=== PATIENT | female | born 1995 | race Asian ===

== ENCOUNTER 2017-04-04 16:16 | Emergency (ER) | payer BC ==
[2017-04-04 16:33] VITALS: BP 101/65
[2017-04-04] MEDS ORDERED: Ondansetron ODT TAB* 4 MG PO ONE (17:42)
[2017-04-04] MEDS ORDERED: Nitrofurantoin Macrocrystals* 50 MG CAP PO ONE (17:44)
--- NOTE | 2017-04-08 11:39 | UC ---
UC General HPI - HPI Summary HPI Summary: Patient presents with an unremarkable past medical history. She feel ill 2 days ago and has had stomach pain, with nausea and not able to eat or drink due to the nausea. She denies any fever, chills, abdominal pain, dysuria, or abnormal vaginal discharge or bleedings. He friend who is a diabetic checked her finger stick and states it was 55, so she gave her her emergency diabetic glucose supplements. She then brings her to the clinic for evaluation. - History of Current Complaint Chief Complaint: UCAbdominalPain Stated Complaint: ABDOMINAL COMPLAINT Time Seen by Provider: 04/04/17 17:26 Hx Obtained From: Patient Hx Last Menstrual Period: unknown, just started a new bith control Onset/Duration: Gradual Onset, Lasting Days Timing: Constant Onset Severity: Moderate Current Severity: Moderate Pain Intensity: 2 Associated Signs & Symptoms: Positive: Nausea, Vomiting - Allergy/Home Medications Allergies/Adverse Reactions: Allergies Allergy/AdvReac Type Severity Reaction Status Date / Time Amoxicillin Allergy Hives Verified 04/04/17 16:33 PMH/Surg Hx/FS Hx/Imm Hx Previously Healthy: Yes - Surgical History Surgical History: Yes Surgery Procedure, Year, and Place: tonsils - Family History Known Family History: Positive: None - Social History Occupation: Student Lives: Alone Alcohol Use: None Substance Use Type: None Smoking Status (MU): Never Smoked Tobacco Review of Systems Constitutional: Fatigue Skin: Negative Eyes: Negative ENT: Negative Respiratory: Negative Cardiovascular: Negative Gastrointestinal: Abdominal Pain, Vomiting, Diarrhea, Nausea Genitourinary: Negative Motor: Negative Neurovascular: Negative Musculoskeletal: Negative Neurological: Negative Psychological: Negative All Other Systems Reviewed And Are Negative: Yes Physical Exam Triage Information Reviewed: Yes Appearance: Well-Appearing Vital Signs: Initial Vital Signs Temp 99.1 F 04/04/17 16:29 Pulse 128 04/04/17 16:29 Resp 18 04/04/17 16:29 BP 101/65 04/04/17 16:29 Pulse Ox 99 04/04/17 16:29 Vital Signs Reviewed: Yes Eye Exam: Normal ENT Exam: Normal Dental Exam: Normal Neck exam: Normal Neck: Positive: 1 Respiratory Exam: Normal Cardiovascular Exam: Normal Abdomen Description: Positive: Soft, Other: - palpable epigastric pain without rebound, guarding or HSM. Musculoskeletal Exam: Normal Skin Exam: Normal Course/Dx - Course Course Of Treatment: Patient presents with 2 days of epigastric abdominal pain, and nausea. UA revealed ketones consistent with anoexia, finger stick was 108 here, she was given zofran with good responce and tolerating oral liquids. I recommend clear liquids today, She did not have peritoneal signs, and given the gooe reposnce I did feel she could be discharge home, clear liquids today and advance diet as toelrated. she was instructed to go to the ER if her symptoms returned and verbalized understanding and was in agreeement with the discharge plan. - Differential Dx - Multi-Symptom Differential Diagnoses: Other - abdominal pain nausea viral syndrome Provider Diagnoses: abdominal pain. nausea. viral syndrome Discharge - Discharge Plan Condition: Stable Disposition: HOME Prescriptions: Nitrofurantoin Monohyd Macro [Macrobid] 100 mg PO BID #14 cap Ondansetron TAB* [Zofran 4 MG Tab*] 4 mg PO TID #14 tab Patient Education Materials: Urinary Tract Infection in Women (ED) Forms: *School Release Referrals: [facility] - [place] [facility] [Primary Care Provider] - Additional Instructions: You will need to be rechecked in two days. If you are not eating you will need to go to the ER.
== END 2017-04-04 18:15 | disposition home or self-care (01) ==
LOC: UCEAST 16:16
DX: B34.9 Viral infection, unspecified (principal); R53.83 Other fatigue; Z32.02 Encounter for pregnancy test, result negative
CPT/HCPCS: 81003; 84702; 99202; A9270-GY; G0463

== ENCOUNTER 2017-04-05 23:06 | Emergency (ER) | payer BC ==
[2017-04-06] MEDS ORDERED: NS 0.9% 1000 ML* 1,000 ML IV ONE (00:27)
[2017-04-06] MEDS ORDERED: Ondansetron INJ* 2 MG/ML VIAL IV ONE (00:27)
[2017-04-06 00:56] LABS: Hematocrit 39 % (35-47); Hemoglobin 13.4 g/dl (12.0-16.0); Mean Corpuscular HGB Conc 34 g/dl (31-36); Mean Corpuscular Hemoglobin 30 pg (27-31); Mean Corpuscular Volume 86 fL (80-97); Mean Platelet Volume 8 um3 (7.4-10.4); Red Blood Count 4.53 10^6/ul (4.0-5.4); Red Cell Distribution Width 13 % (10.5-15); White Blood Count 8.8 10^3/ul (3.5-10.8)
[2017-04-06 01:11] LABS: ALT 11 U/L (7-52); AST 16 U/L (13-39); Albumin 4.8 g/dL (3.2-5.2); Alkaline Phosphatase 52 U/L (34-104); Anion Gap 11 mmol/L (2-11); BUN/Creatinine Ratio 18.7 (8-20); Blood Urea Nitrogen 17 mg/dL (6-24); CO2 Carbon Dioxide 23 mmol/L (22-32); Calcium 9.9 mg/dL (8.6-10.3); Chloride 101 mmol/L (101-111); EGFR African American 102.4 (>60); EGFR Non-African American 79.6 (>60); Globulin 2.9 g/dL (2-4); Glucose 79 mg/dL (70-100); Potassium 3.6 mmol/L (3.5-5.0); Sodium 135 mmol/L (133-145); Total Protein 7.7 g/dL (6.4-8.9)
[2017-04-06 02:36] LABS: Urine Bilirubin Negative (Negative); Urine Glucose Negative (Negative); Urine Nitrite Negative (Negative)
[2017-04-06 03:21] VITALS: BP 114/65
--- NOTE | 2017-04-06 06:13 | ED ---
Jeramie Noguera Rebecca, scribed for Kristie Rehman MD on 04/06/17 at 0052 . Complex/Multi-Sys Presentation - HPI Summary HPI Summary: Pt is a 21 y/o F who presents to ED c/o nausea for about 4 days. Sx aggravated and alleviated by nothing. Additionally c/o intermittent SALAS, decreased appetite and dizziness upon sitting/standing. States that she has been unable to eat for the last 3 days secondary to nausea. Denies back pain, abdominal pain. She was evaluated by Urgent Care yesterday where she was given antiemetics and Abx for UTI, though the antiemetics have not been alleviating sx significantly. - History Of Current Complaint Chief Complaint: EDNauseaVomitDiarrh Time Seen by Provider: 04/06/17 00:27 Hx Obtained From: Patient Onset/Duration: Still Present Timing: Days - 4 days Severity Currently: None Location: Negative Aggravating Factor(s): Nothing Alleviating Factor(s): Nothing Associated Signs And Symptoms: Positive: Dizziness, Nausea - Allergies/Home Medications Allergies/Adverse Reactions: Allergies Allergy/AdvReac Type Severity Reaction Status Date / Time Amoxicillin Allergy Hives Verified 04/04/17 16:33 PMH/Surg Hx/FS Hx/Imm Hx Endocrine/Hematology History: Denies: Hx Diabetes Cardiovascular History: Denies: Hx Hypertension - Surgical History Surgery Procedure, Year, and Place: tonsils Infectious Disease History: No Infectious Disease History: Denies: Traveled Outside the [place] in Last 30 Days - Family History Known Family History: Positive: Hypertension, Other - HLD - Social History Alcohol Use: None Substance Use Type: Reports: None Smoking Status (MU): Never Smoked Tobacco Review of Systems Positive: Ear Ache Negative: Chest Pain Negative: Shortness Of Breath Positive: Nausea, Other - Decreased appetite. Negative: Abdominal Pain, Vomiting, Diarrhea Positive: Other - NEGATIVE: Back pain Neurological: Other - Dizziness Positive: Headache - Intermittent All Other Systems Reviewed And Are Negative: Yes Physical Exam - Summary Physical Exam Summary: Appearance: Alert, conversive, nontoxic appearing Skin: Warm, dry, no mottling, no rashes, no contusions HEENT: EOMI, PERRL, moist mucous membranes Neck: No masses on the neck, supple Respiratory: Clear to auscultation, breath sounds present, no rales, no rhonchi , no wheezes Cardiovascular: RRR, pulses are symmetrical in both lower and upper extremities Abdomen: Soft, non-tender Bowel Sounds: Present Musculoskeletal: No CVA tenderness, no obvious deformity, moving all extremities in a grossly normal manner Neurological: A&Ox3, CN II-XII Intact, moving all extremities symmetrically Psychiatric: Normal affect and mood Triage Information Reviewed: Yes Vital Signs On Initial Exam: Initial Vitals Temp Pulse Resp BP Pulse Ox 97.5 F 74 18 116/77 100 04/05/17 23:27 04/05/17 23:27 04/05/17 23:27 04/05/17 23:27 04/05/17 23:27 Vital Signs Reviewed: Yes - Bowie Coma Scale Coma Scale Total: 15 Diagnostics - Vital Signs Vital Signs Temp Pulse Resp BP Pulse Ox 04/05/17 23:27 97.5 F 74 18 116/77 100 - Laboratory Result Diagrams: 04/06/17 00:45 04/06/17 00:45 Lab Statement: Any lab studies that have been ordered have been reviewed, and results considered in the medical decision making process. Complex Multi-Symp Course/Dx Assessment/Plan: Pt is a 21 y/o F who presents to ED c/o nausea for about 4 days. Additionally c/o intermittent SALAS, decreased appetite and dizziness upon sitting/standing. States that she has been unable to eat for the last 3 days secondary to nausea. Denies back pain, abdominal pain. She was evaluated by Urgent Care yesterday where she was given antiemetics and Abx for UTI, though the antiemetics have not been alleviating sx significantly. Urine shows no evidence of UTI and the remainder of her labs are grossly normal. The CBC shows no WBC elevation and no bandemia. Can continue the Abx that she was given this week for her Dx of UTI earlier this week. The pt will be D/C with Dx of dehydratoin and UTI. She is agreeable with this plan. - Diagnoses Provider Diagnoses: Dehydration, UTI (urinary tract infection) Discharge - Discharge Plan Condition: Stable Disposition: HOME Patient Education Materials: Dehydration (ED), Urinary Tract Infection in Women (ED) Referrals: [facility] - [place] [Primary Care Provider] - Additional Instructions: drink plenty of fluids. return if worse or any new symptoms. Finish your antibiotics as prescribed for your UTI diagnosed earlier in the week. The documentation as recorded by the Jeramie rosado Rebecca accurately reflects the service I personally performed and the decisions made by , Kristie Rehman MD.
== END 2017-04-06 02:35 | disposition home or self-care (01) ==
LOC: ED 23:06
DX: E86.0 Dehydration (principal); N39.0 Urinary tract infection, site not specified; R42 Dizziness and giddiness; R11.0 Nausea
CPT/HCPCS: 36415; 80053; 81003; 84702; 85025; 96374; 96375; 99282; J2405

== ENCOUNTER 2019-03-28 20:06 | Emergency (ER) | payer BC ==
[2019-03-28] MEDS ORDERED: Acetaminophen TAB* 325 MG PO ONE (20:32)
[2019-03-28] MEDS ORDERED: Ondansetron ODT TAB* 4 MG SL ONE (20:33)
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
[2019-03-28 21:55] VITALS: BP 112/78
== END 2019-03-28 21:51 | disposition home or self-care (01) ==
LOC: ED 20:06
DX: S06.0X9A Concussion with loss of consciousness of unspecified duration, initial encounter (principal); W22.8XXA Striking against or struck by other objects, initial encounter; Y92.9 Unspecified place or not applicable; Z88.1 Allergy status to other antibiotic agents; Z79.899 Other long term (current) drug therapy
CPT/HCPCS: 70450; 99282; A9270-GY